=== PATIENT | female | born 1935 | race Caucasian/White ===

== ENCOUNTER 2017-05-27 21:12 | Emergency (ER) | payer MEDICARE, OTHER ==
[2017-05-27] MEDS ORDERED: Azithromycin 500 MG VIAL ONE (22:25)
[2017-05-27] MEDS ORDERED: methylPREDNISolone Sod Succ/PF 125 MG/2 ML VIAL ONE (22:25)
--- NOTE | 2017-05-27 22:30 | RAD ---
CHEST TWO VIEWS: History: Cough, congestion, sore throat. Comparison: 07-25-15 FINDINGS: Two views chest. Atherosclerosis of the aorta. Normal cardiac silhouette. The pulmonary vessels and hilum are normal. Costophrenic angles are clear. Lungs are hyperinflated. There are chronic changes. No masses or consolidation. No pneumothorax. Mil d compression deformities along the distal thoracic spine, unchanged when compared to thoracic spine radiographs 02-01-12. IMPRESSION: 1. Hyperinflation. Chronic changes. 2. Atherosclerosis of the aorta. 3. Chronic mild compression deformities along the distal thoracic spine. POS: [facility]
[2017-05-27 22:43] LABS: Band 5 % (5-11); Hematocrit 39.1 % (36.0-47.0); Mean Platelet Volume 9.4 fL (7.4-10.4); Neutrophil 69 % (42-75); Red Blood Cell (RBC) Count 4.53 mill/uL (4.20-5.40); White Blood Cell (WBC) Count 7.8 thou/uL (4.8-10.8)
[2017-05-27 22:44] LABS: ALT (SGPT) 11 U/L (8-55); AST (SGOT) 20 U/L (5-34); Alkaline Phosphatase 132 U/L (40-150); Anion Gap 13 mmol/L (10-20); BUN (Urea Nitrogen) 9 mg/dL (9.8-20.1); Bilirubin, Total 0.6 mg/dL (0.2-1.2); Calc. Creatinine Clearance 0 mL/min (70-130); Carbon Dioxide 25 mmol/L (23-31); Chloride 104 mmol/L (98-107); Estimated GFR-MDRD 87; Globulin 3.2 g/dL (2.4-3.5); Protein, Total 7.1 g/dL (6.0-8.3)
== END 2017-05-27 23:20 | disposition home or self-care (01) ==
LOC: SCSER 21:12
DX: J32.9 Chronic sinusitis, unspecified (principal); J20.9 Acute bronchitis, unspecified; I49.9 Cardiac arrhythmia, unspecified; I48.91 Unspecified atrial fibrillation; I10 Essential (primary) hypertension; Z79.899 Other long term (current) drug therapy; Z79.82 Long term (current) use of aspirin
CPT/HCPCS: 71020; 80053; 85025; 96374; J0456; J2930; J7620

== ENCOUNTER 2017-12-12 09:13 | Outpatient (CLI) | payer MEDICARE, OTHER ==
--- NOTE | 2017-12-12 12:01 | RAD ---
FIVE VIEWS LUMBAR SPINE: Date: 12-12-17 Comparison: 02-01-12 History: Back pain. FINDINGS: The osseous structures are significantly osteopenic, which limits detailed assessment. There is atherosclerotic calcification of the abdominal aorta. There is prominent lower lumbar spine facet hypertrophy including L3-4, L4-5, and L5-S1. There is mil d stable anterolisthesis of L4 on L5. There is a superior endplate/anterior wedge compression fracture involving the L2 vertebral body with a moderate degree of loss of vertebral body height centrally, unchanged when compared to the 02-01-12 examination. There is an anterior wedge compression fracture of T12 with approximately 40% loss of ve rtebral body height anteriorly, not significantly changed since 2011 either. Incompletely imaged hard shipley is seen within the left femoral neck and proximal left femoral shaft. The frontal imaging and lateral imaging demonstrates a fracture of the T10 vertebral body with modera te anterior loss of vertebral body height, age indeterminate. IMPRESSION: Numerous fractures are noted. The bones are demineralized, limiting detailed assessment. If there is clinical concern for central canal and/or neural foraminal stenosis, MRI may be beneficial. T12 and L 3 fractures appear stable while T10 vertebral body fracture is of indeterminate age and may be acute. POS: [facility]
--- NOTE | 2017-12-12 12:03 | RAD ---
TWO VIEWS SACRUM AND COCCYX: Date: 12-12-17 Comparison: None. History: Pain. FINDINGS: The bones are markedly demineralized, limiting detailed assessment for fracture. The sacrum is obscur ed by stool and bowel gas on frontal imaging. No widening of the sacroiliac joints or pubic symphysis . Distal aspect of the sacrum/coccyx is not well visualized on this exam. Lumbar spine findings are b beau assessed on dedicated lumbar spine series, also performed 12-12-17. IMPRESSION: Limited assessment demonstrating no evidence for an acute pelvic fracture. POS: [facility]
== END 2017-12-12 09:14 | disposition home or self-care (01) ==
LOC: SCSRAD 09:13
PROVIDERS: ATTEND Internal Medicine
DX: M54.9 Dorsalgia, unspecified (principal); Z87.81 Personal history of (healed) traumatic fracture
CPT/HCPCS: 72110; 72220